=== PATIENT | female | born 1960 | race Caucasian/White ===

== ENCOUNTER 2020-01-07 17:15 | Emergency (ER) | payer MEDICARE, MEDICAID, SELFPAY ==
--- NOTE | 2020-01-07 17:47 | PC.NURSE ---
PT LWBS, LAST SEEN AT 1745 BY REGISTRATION STAFF, BELKIS
== END 2020-01-07 17:47 | disposition left against medical advice (07) ==
LOC: CHSED 17:19
PROVIDERS: Emergency Provider Surgery; PCP Family Medicine
DX: Z53.8 Procedure and treatment not carried out for other reasons (principal)
CPT/HCPCS: 99199

== ENCOUNTER 2020-08-22 09:25 | Emergency (ER) | payer MEDICARE, MEDICAID, SELFPAY ==
--- NOTE | ~2020-08-22 | XR_ITS ---
XR wrist LT min 3V 08/22/2020 10:41 Indication: Status post fall. Arm pain. Procedure: 4 views left wrist Comparison: No prior studies for comparison. Findings: Mild degenerative changes of the triscaphe joint. Osteopenia. No acute fracture, subluxatio n or dislocation. No significant joint effusion. No radiopaque foreign bodies. Impression: 1: No acute fracture. Reviewed, dictated and finalized at location A. Impression: 1: No acute fracture.
--- NOTE | ~2020-08-22 | CT_ITS ---
EXAMINATION: CT lumbar spine wo con EXAM DATE: 08/22/2020 10:13 INDICATION: Fell down flight of steps today causing back pain. TECHNIQUE: Lumber spine frontal, lateral, lateral L5-S1 projections for interpretation. There is no prior study for comparison. FINDINGS: There is hepatic steatosis. There is suspicion of gastroesophageal varicosities. There is old left L3 transverse process fracture. Sacrum, sacroiliac joints, sacral arcuate lines are intact. There are no acute fractures identified. Mild to moderate loss of disc height at L4-5 with large disc bulge,, causing moderate central canal and left neural foraminal stenosis. Smaller disc bulges, less disc disease and stenosis at other levels. Mild to moderate aortic arteriosclerotic disease. No spon dylolysis. Mild to moderate lower lumbar facet arthropathy. IMPRESSION: 1. No acute lumbar findings. 2. L4-5 large disc bulge with moderate central canal and left neural foraminal stenosis. 3. Lesser spondylosis other levels. 4. Hepatic steatosis. Possible gastroesophageal varicosities. Reviewed, dictated and finalized at location B.
--- NOTE | ~2020-08-22 | XR_ITS ---
EXAMINATION: XR elbow LT min 3V DATE: 08/22/2020 10:41 INDICATION: Left elbow pain. TECHNIQUE: 3 views of left elbow were obtained. COMPARISON: None. FINDINGS: Bone alignment is normal. There is cortical irregularity at the junction of radial head and neck. There is a small fragment of bone adjacent to the tip of coronoid process of proximal ulna. Viv int spaces are normal. There is an enthesophyte at medial humeral epicondyle. There is an elbow joint effusion. IMPRESSION: 1. Small fragment of bone adjacent to the tip of the coronoid process of proximal ulna, which may be an acute fracture or a finding from old injury. 2. Cortical irregularity of the junction of radial head and neck, which is indeterminate for nondispl aced fracture. 3. Elbow joint effusion. Reviewed, dictated and finalized at location A. IMPRESSION: 1. Small fragment of bone adjacent to the tip of the coronoid process of proxim al ulna, which may be an acute fracture or a finding from old injury. 2. Cortical irregularity of the junction of radial head and neck, which is inde terminate for nondisplaced fracture. 3. Elbow joint effusion.
--- NOTE | ~2020-08-22 | XR_ITS ---
XR humerus LT 08/22/2020 10:41 INDICATION: Left arm pain PROCEDURE: 2 views left humerus COMPARISON: No prior studies for comparison. FINDINGS: Fracture, dislocation or subluxation is not identified. The soft tissues appear within norm al limits. No foreign bodies are identified. IMPRESSION: 1: NO ACUTE BONE OR JOINT ABNORMALITY IDENTIFIED. Reviewed, dictated and finalized at location A.
[2020-08-22 09:30] VITALS: BP 102/48; PULSE 123; RESP 20; TEMP 36.9; O2SAT 94
--- NOTE | 2020-08-22 09:40 | ED.UPPEXIN ---
HPI - Extremity Injury (Upper) General Chief Complaint: Extremity Injury, Upper Stated Complaint: FELL HURT ARM WRIST Time Seen by Provider: 08/22/20 09:32 Source: patient Mode of arrival: ambulatory History of Present Illness HPI narrative: 59-year-old woman comes in today complaining of left arm pain that started yesterday evening after she fell down some stairs. Patient states she was carrying a box down some stairs when she lost her footing, and slid down on her back and left side. she denies any preceding symptoms such as lightheadedness, chest pain, shortness of breath, dizziness, or syncope. She denies head injury and neck pain. Other than the arm injury she complains of low back tenderness. complaint: injury to: left, arm, elbow and wrist Onset (ago): hour(s) (12) Other Extremity Injury: Left: wrist, elbow and arm Other injuries: back Handedness: right Place: home Severity: severe Relieving factors: immobilization Exacerbating factors: movement of extremity Context: fall Related Data Allergies Allergy/AdvReac Type Severity Reaction Status Date / Time codeine Allergy Mild Verified 03/28/11 18:20 Penicillins Allergy Mild Verified 03/28/11 18:20 Review of Systems Constitutional: Constitutional: Denies chills and Denies fever(s) Eyes: Eyes: Denies change in vision and Denies photophobia ENT: Denies dysphagia, Denies nasal congestion and Denies sore throat Cardiovascular: Cardiovascular: Denies chest pain and Denies radiating jaw, neck or arm pain Respiratory: Respiratory: Denies cough, Denies dyspnea and Denies wheezing Gastrointestinal: Gastrointestinal: Denies abdominal pain, Denies nausea and Denies vomiting Genitourinary: Genitourinary: Denies hematuria Musculoskeletal: Musculoskeletal: Reports as per HPI, Reports back pain, Reports arthralgias and Denies joint swelling Integumentary/Breasts: Skin/Breast: Denies pruritus, Denies erythema and Denies rash Neurologic: Reports vertigo, Reports dizziness and Reports syncope Endocrine: Endocrine: Denies polydipsia and Denies polyuria Hematologic/Lymphatic: Hematologic/Lymphatic: Denies easy bleeding and Denies easy bruising Allergic/Immunologic: Allergic/Immunologic: Denies lip swelling and Denies tongue swelling [facility] Past Medical History Medical History (Updated 08/22/20 @ 11:03 by Pro Andersen MD) HTN (hypertension) Surgical History Surgical History History of ankle surgery Social History Social History Smoking status: Current every day smoker Alcohol intake: current Substance use: never Living arrangements: alone Exam Const: General: alert Orientation/consciousness: patient oriented x3 Limitations: no limitations Other: Moderate acute distress HENMT: Head: normal to inspection Ears: external ears normal and EAC's normal General nose exam: Normal nares present Face and sinus: normal facial exam Mouth: Yes moist mucous membranes Throat: posterior oropharynx normal Eyes: Conjunctivae: conjunctivae normal Pupils: Equal, round and reactive pupils present EOM: EOMs intact bilaterally Neck: Neck: normal visual inspection Other: No tenderness. Chest: Chest palpation & inspection: normal inspection of the chest and no tenderness Resp: Effort & Inspection: normal respiratory effort and not labored Auscultation: clear to auscultation bilaterally, no rales, no rhonchi and no wheezes Cardio: Rate: regular rate Rhythm: regular rhythm Heart sounds: no murmurs GI: GI Palp: Yes Soft to palpation and No Tenderness to palpation present (GI) Skin: General skin exam: normal color, no jaundice and no pallor Rashes: no rashes Other: Contusion over left lateral pelvis and superficial abrasion on lower lumbar spine. Neuro: General: patient oriented x3, moves all extremities, no focal motor deficits and CN's II-XI
[2020-08-22 11:16] VITALS: BP 108/51; PULSE 118; RESP 18; TEMP 36.7; O2SAT 94
[2020-08-22] MEDS: HYDROcodone/acetaminophen (*CRX) 5-325 MG TABLET 1 TAB PO (11:19)
== END 2020-08-22 11:24 | disposition home or self-care (01) ==
PROVIDERS: Emergency Provider Emergency Medicine; PCP Family Medicine
DX: S63.502A Unspecified sprain of left wrist, initial encounter (principal); S52.125A Nondisplaced fracture of head of left radius, initial encounter for closed fracture; W10.9XXA Fall (on) (from) unspecified stairs and steps, initial encounter; I10 Essential (primary) hypertension; F17.200 Nicotine dependence, unspecified, uncomplicated
CPT/HCPCS: 72131; 73060; 73080; 73110; 99283; 99284; A9270

== ENCOUNTER 2020-10-27 14:15 | Emergency (ER) | payer MEDICARE, MEDICAID, SELFPAY ==
[2020-10-27 14:20] VITALS: BP 166/91; PULSE 123; RESP 16; TEMP 36.1; O2SAT 97
[2020-10-27 15:02] LABS: Appearance Urine Clear (Clear); Bilirubin Urine Negative (Negative); Color Urine Yellow (Yellow); Glucose Urine UA Negative (Negative); Ketones Urine Negative (Negative); Leukocyte Esterase Ur 1+ (Negative); Nitrate Urine Negative (Negative); Protein Urine Negative (Negative); Specific Grav Ur 1.025 (1.010-1.020); Urobilinogen Urine 0.2 mg/dL (0.2-1.0)
[2020-10-27 15:20] LABS: Add Urine Microscopic? YES; Blood Urine Trace-Intact (Negative); RBC Urine None seen /hpf (0-2); Squamous Epithelial Cell Urine Rare /hpf (Few)
[2020-10-27 15:21] LABS: Bacteria Urine 1+ /hpf
--- NOTE | 2020-10-27 15:27 | ED.GENADULT ---
HPI - General Adult General Chief complaint: Unspecified Stated complaint: infection in throat Time Seen by Provider: 10/27/20 15:15 Source: patient Mode of arrival: ambulatory Limitations: no limitations History of Present Illness HPI narrative: 60-year-old woman comes in today complaining of sore throat, white patches on her uvula and in her throat for last few days And white vaginal discharge which has been present for last month. Patient states that she has had some mild but not new low abdominal pain, and states that she has some discomfort with urination but has had no fever, nausea, vomiting, cough, difficulty swallowing or difficulty breathing, hematuria or rash. She mentioned to the nurses that she might need to be screened for STDs. She denies any recent antibiotics and has no history of IV drug use. Onset (ago): month(s) (1) Location: mouth and genitals Radiation: non-radiation Severity: mild Quality: burning and sharp Pain Consistency: constant Relieving factors: none Exacerbating factors: other ( Swallowing, urination) Related Data Allergies Allergy/AdvReac Type Severity Reaction Status Date / Time codeine Allergy Mild Verified 03/28/11 18:20 Penicillins Allergy Mild Verified 03/28/11 18:20 Review of Systems Constitutional: Constitutional: Denies chills, Denies fever(s), Denies lethargy, Denies night sweats and Reports weight loss Eyes: Eyes: Denies change in vision and Denies other visual disturbances ENT: Denies otalgia, Denies nasal congestion, Denies neck mass, Denies neck pain, Reports sore throat and Denies throat swelling Cardiovascular: Cardiovascular: Denies chest pain, Denies irregular heart rhythm, Denies leg edema and Denies dyspnea on exertion Respiratory: Respiratory: Denies chest congestion, Denies cough, Denies dyspnea, Denies stridor and Denies wheezing Gastrointestinal: Gastrointestinal: Denies abdominal pain, Denies dysphagia, Denies diarrhea, Denies nausea and Denies vomiting Genitourinary: Genitourinary: Denies hematuria, Reports dysuria, Reports pelvic pain and Reports vaginal discharge Musculoskeletal: Musculoskeletal: Denies arthralgias and Denies joint swelling Integumentary/Breasts: Skin/Breast: Denies erythema and Denies rash Neurologic: Denies vertigo, Denies dizziness, Denies syncope, Denies focal weakness, Denies numbness and Denies radicular pain Hematologic/Lymphatic: Hematologic/Lymphatic: Denies easy bleeding and Denies easy bruising Allergic/Immunologic: Allergic/Immunologic: Denies urticaria and Denies throat swelling PMFSH Past Medical History Medical History HTN (hypertension) Surgical History Surgical History History of ankle surgery Social History Social History Smoking status: Current every day smoker Alcohol intake: current Substance use: never Exam Const: General: cooperative, healthy appearing and acute distress mild Nutritional Appearance: average body habitus Orientation/consciousness: patient oriented x3 Limitations: no limitations HENMT: Head: normal to inspection, normocephalic and atraumatic Ears: external ears normal, TM's normal bilaterally and EAC's normal General nose exam: Normal nares present Face and sinus: normal facial exam Mouth: Yes moist mucous membranes Throat: uvular edema ( with think adherent white patches) Eyes: Pupils: Equal, round and reactive pupils present EOM: EOMs intact bilaterally Neck: Neck: normal visual inspection Lymphatic: no lymphadenopathy noted Resp: Effort & Inspection: normal respiratory effort, not labored and no stridor Auscultation: clear to auscultation bilaterally Cardio: Rate: regular rate Rhythm: regular rhythm Heart sounds: no murmurs GI: Inspection: normal to inspection GI Palp: No abdominal tenderness and Yes S
[2020-10-27 15:38] LABS: KOH Fungus None Seen (None Seen); Wet Prep Fungus (KOH) Source Vaginal (Negative)
[2020-10-27 15:40] LABS: Basophils Absolute Auto 0.07 K/mm3 (0.00-0.10); Basophils Percent Auto 1.1 % (0.0-1.0); Eosinophils Absolute Auto 0.21 K/mm3 (0.02-0.50); Eosinophils Percent Auto 3.3 % (1.0-6.0); Hematocrit 45.2 % (35.0-49.0); Hemoglobin 15.6 g/dL (12.0-15.0); Immature Granulocyte Absolute 0.01 K/mm3 (0.00-0.00); Immature Granulocyte Percent A 0.2 % (0.0-0.0); Lymphocytes Absolute Auto 2.01 K/mm3 (1.10-4.50); Lymphocytes Percent Auto 31.4 % (18.0-42.0); Mean Corpuscular HGB Conc 34.5 g/dL (32.0-36.0); Mean Corpuscular Hemoglobin 33.5 pg (27.0-31.0); Mean Corpuscular Volume 97.2 fL (78.0-102.0); Mean Platelet Volume 9.8 fl (9.2-11.8); Monocytes Absolute Auto 0.67 K/mm3 (0.10-0.90); Monocytes Percent Auto 10.5 % (2.0-11.0); Neutrophils Absolute Auto 3.4 K/mm3 (1.7-7.2); Neutrophils Percent Auto 53.5 % (50.0-70.0); Platelet Count Result 166 K/mm3 (150-420); Red Blood Count 4.65 M/mm3 (4.20-5.40); Red Cell Distribution Width 11.8 % (11.6-14.4); White Blood Count 6.4 K/mm3 (4.8-10.8)
[2020-10-27 15:45] VITALS: BP 137/75; PULSE 89; RESP 14; O2SAT 98
[2020-10-27 15:53] LABS: Alanine Aminotransferase 22 U/L (14-59); Albumin Level 3.7 g/dL (3.4-5.0); Alkaline Phosphatase 147 U/L (46-116); Anion Gap 10 mmol/L (8-16); Aspartate Amino Transferase 38 U/L (15-37); Bilirubin,Total 0.7 mg/dL (0.00-1.00); Blood Urea Nitrogen 5 mg/dL (7-18); Calcium 9.2 mg/dL (8.5-10.1); Carbon Dioxide 27 mmol/L (21-32); Chloride 102 mmol/L (98-108); Estimated Glomerular Filt Rate > 60; Glucose 101 mg/dL (70-99); Osmolality Calculated 285 mOsm/kg (285-295); Potassium 3.3 mmol/L (3.5-5.1); Sodium 139 mmol/L (136-145); Total Protein 9.1 g/dL (6.4-8.2)
[2020-10-27 16:27] LABS: HIV 1 P24 AG Negative (Negative); HIV 1/2 AB Negative (Negative)
[2020-10-27 16:49] VITALS: BP 140/80; PULSE 99; RESP 15; O2SAT 95
== END 2020-10-27 16:50 | disposition home or self-care (01) ==
PROVIDERS: Emergency Provider Emergency Medicine; PCP Family Medicine
DX: R30.0 Dysuria (principal); B37.3 Candidiasis of vulva and vagina; J02.9 Acute pharyngitis, unspecified
CPT/HCPCS: 36415; 80053; 81001; 85025; 86703; 87210; 87491; 87591; 99283; 99284

== ENCOUNTER → 2021-05-23 00:36 | Outpatient (CLI) | payer MEDICARE, MEDICAID, SELFPAY ==
[2021-05-23 16:57] LABS: SARS-CoV-2 RNA PCR Negative
== END ==
PROVIDERS: PCP Family Medicine; Visit Provider Surgery
DX: Z01.812 Encounter for preprocedural laboratory examination (principal); Z20.822 Contact with and (suspected) exposure to COVID-19
CPT/HCPCS: C9803; U0003; U0005

== ENCOUNTER 2021-05-27 01:21 | Day surgery (SDC) | payer MEDICARE, MEDICAID, SELFPAY ==
[2021-05-20 15:11] VITALS: BMI 19.2
--- NOTE | ~2021-05-27 | XR_ITS ---
EXAMINATION: XR fl guide central line place DATE: 05/27/2021 12:15 INDICATION: Port placement. TECHNIQUE: A single intraoperative fluoroscopic view of the chest was obtained. I was not present. Fl uoroscopy exposure time was 28 seconds. COMPARISON: Chest single view 05/27/2021 FINDINGS: There is a right internal jugular port with tip at superior cavoatrial junction. IMPRESSION: 1. Port tip at superior cavoatrial junction. Reviewed, dictated and finalized at location A.
--- NOTE | ~2021-05-27 | XR_ITS ---
EXAMINATION: XR chest port-a-cath/central DATE: 05/27/2021 11:49 INDICATION: Port placement. TECHNIQUE: A single frontal view of the chest was obtained. COMPARISON: Chest 2 views 02/15/2019 FINDINGS: The chest demonstrates clear lungs without pneumonia, pleural effusion, or pneumothorax. Th e heart size is normal. There are old healed left rib fractures. There is a right internal jugular po rt with tip in superior vena cava. IMPRESSION: 1. Port tip in superior vena cava. Reviewed, dictated and finalized at location A.
[2021-05-27 08:19] VITALS: BP 103/56; PULSE 100; RESP 16; TEMP 37.1; O2SAT 100
[2021-05-27] MEDS: LACTATED RINGERS 1,000 ML 30 ML IV CONT (08:43)
[2021-05-27 08:47] LABS: Basophils Percent Auto 0.5 % (0.2-1.2); Eosinophils Absolute Auto 0.3 K/mm3 (0-0.3); Eosinophils Percent Auto 3.4 % (0-4.4); Hemoglobin 12.6 g/dL (12.0-15.0); Immature Granulocyte Absolute 0.02 K/mm3 (0.00-0.031); Immature Granulocyte Percent A 0.3 % (0-0.5); Lymphocytes Absolute Auto 1.92 K/mm3 (0.9-3.2); Lymphocytes Percent Auto 24.9 % (18.3-44.2); Mean Corpuscular Hemoglobin 32.4 pg (26-34); Mean Corpuscular Volume 92.5 fl (80-100); Mean Platelet Volume 9.8 fl (7.4-10.4); Monocytes Percent Auto 12.7 % (2.6-8.5); Neutrophils Absolute Auto 4.5 K/mm3 (1.3-6.7); Neutrophils Percent Auto 58.2 % (45.5-73.1); Platelet Count Result 175 k/mm3 (150-375); Red Blood Count 3.89 M/mm3 (4.2-5.4); White Blood Count 7.7 K/mm3 (4.5-10.0)
[2021-05-27] MEDS: KETOROLAC 15 MG/ML VIAL (*BKC) IV PUSH (08:49)
[2021-05-27 08:59] LABS: Partial Thromboplastin Time 35.8 SECONDS (22.3-36.8)
[2021-05-27 09:02] LABS: Anion Gap 7 mmol/L (8-16); Blood Urea Nitrogen 9 mg/dL (7-17); Calcium 9.6 mg/dL (8.4-10.2); Carbon Dioxide 26 mmol/L (22-30); Chloride 104 mmol/L (98-107); Estimated Glomerular Filt Rate > 60; Glucose 99 mg/dL (65-105); Potassium 4.3 mmol/L (3.4-5.0); Sodium 137 mmol/L (137-145)
--- NOTE | 2021-05-27 09:34 | WPDANESEPPF ---
Anes - Initial Pre Proc Eval Procedure: Operation Date: 05/27/21 10:30 Proposed Procedures p Insertion Niko Cath - Josias Mensah DO Date/Time: 05/27/21 09:34 Surgeon: Jsoias Mensah DO Pre Op Diagnosis: neoplasm of mouth Patient Data Age: 60 Gender: F Height: 1.5 m Weight: 42.9 kg Last Vital Signs Temp 37.1 C 05/27/21 08:19 Pulse 100 05/27/21 08:19 Resp 16 05/27/21 08:19 BP 103/56 L 05/27/21 08:19 Pulse Ox 100 05/27/21 08:19 Allergies Allergy/AdvReac Type Severity Reaction Status Date / Time codeine Allergy Mild Itching, Verified 05/27/21 08:30 N/V Penicillins Allergy Mild Hives Verified 05/27/21 08:30 Home Medications Medication Instructions Recorded Confirmed Type acetaminophen [Children's Tylenol] See Rx Instructions .ROUTE 05/20/21 05/27/21 History .COMPLEX PRN thiamine HCl (vitamin B1) 100 mg DAILY 05/20/21 05/27/21 History Laboratory Tests 05/27/21 05/27/21 05/27/21 08:29 08:29 08:29 WBC 7.7 K/mm3 K/mm3 (4.5-10.0) RBC 3.89 M/mm3 L M/mm3 (4.2-5.4) Hgb 12.6 g/dL g/dL (12.0-15.0) Hct 36.0 % L % (37.0-47.0) MCV 92.5 fl fl (80-100) MCH 32.4 pg pg (26-34) MCHC 35.0 g/dl g/dl (32-36) RDW 15.0 % H % (11.5-14.5) Plt Count 175 k/mm3 k/mm3 (150-375) MPV 9.8 fl fl (7.4-10.4) Immature Gran % (Auto) 0.3 % % (0-0.5) Neut % (Auto) 58.2 % % (45.5-73.1) Lymph % (Auto) 24.9 % % (18.3-44.2) [place] % (Auto) 12.7 % H % (2.6-8.5) Eos % (Auto) 3.4 % % (0-4.4) Baso % (Auto) 0.5 % % (0.2-1.2) Lymph # (Auto) 1.92 K/mm3 K/mm3 (0.9-3.2) [place] # (Auto) 1.0 K/mm3 H K/mm3 (0.1-0.6) Eos # (Auto) 0.3 K/mm3 K/mm3 (0-0.3) Baso # (Auto) 0.0 K/mm3 K/mm3 (0.0-0.1) Abs Immat Gran (auto) 0.02 K/mm3 K/mm3 (0.00-0.031) Absolute Neuts (auto) 4.5 K/mm3 K/mm3 (1.3-6.7) Absolute Nucleated RBC 0.0 K/mm3 K/mm3 (0.0-0.012) Nucleated RBC % 0.0 % % (0.0-0.2) PT 14.0 Seconds Seconds (11.1-14.7) INR 1.0 APTT 35.8 SECONDS SECONDS (22.3-36.8) Sodium 137 mmol/L mmol/L (137-145) Potassium 4.3 mmol/L mmol/L (3.4-5.0) Chloride 104 mmol/L mmol/L (98-107) Carbon Dioxide 26 mmol/L mmol/L (22-30) Anion Gap 7 mmol/L L mmol/L (8-16) BUN 9 mg/dL mg/dL (7-17) Creatinine 0.40 mg/dL L mg/dL (0.7-1.0) Estim Creat Clear Calc Not Reportable Estimated GFR > 60 (59 - ) Glucose 99 mg/dL mg/dL (65-105) Calcium 9.6 mg/dL mg/dL (8.4-10.2) Patient hx anesthesia problems: none Family hx anesthesia problems: none [facility] Past Medical History Medical History (Updated 05/27/21 @ 09:35 by Sam Green MD) Alcohol abuse HTN (hypertension) Marijuana abuse Oral cancer Surgical History Surgical History History of ankle surgery Social History Social History Smoking status: Current every day smoker Tobacco type: cigarettes Additional smoking assessment comments: STATES WAS SMOKING 1 1/2PK/DAY-NOW DOWN TO 4 CIGS/DAY - 25YRS Alcohol intake: former Alcohol use details: STATES WAS DRINKING 2- 20 OZ CANS NIGHTLY, QUIT FEBRUARY 2021 Substance use: current Substance use type: marijuana Last use: APRIL 2021 Living arrangements: alone Spiritual care concerns: No Anes - Eval Final PreProcedure Day of Procedure 05/27/21 09:34 Patient weight: cachectic Heart: regular rate and rhythm Lungs: decreased breath sounds Airway: Mallampati scale class III, special considerations poor dentition and other (large plaque oral cancer on soft palate) Neurological: al
--- NOTE | 2021-05-27 10:49 | WPDHPUPDATE1 ---
History and Physical Update Update Date/Time: 05/27/21 10:49 History and Physical has been reviewed, including an updated exam of the patient. There are NO changes in the patient's condition. Risks, benefits, and alternatives have been discussed and questions answered. Patient agrees to proceed with procedure.
--- NOTE | 2021-05-27 10:49 | PM.IMHP ---
H&P: HPI History of Present Illness Date/Time: 05/27/21 10:49 Chief Complaint: Oral cancer Narrative: This is a 60 yo woman who presents with oral cancer. She has seen oncology and they are recommending chemo and radiation. She is in need of port placement to start chemo. Review of Systems Review of Systems: All systems reviewed & are unremarkable except as noted in HPI and below Constitutional: Constitutional: Denies chills, Denies fever(s), Denies headache(s) and Denies weight loss Eyes: Eyes: Denies change in vision ENT: Denies dizziness, Denies headache(s), Denies neck mass and Denies throat swelling Cardiovascular: Cardiovascular: Denies chest pain, Denies lightheadedness and Denies dyspnea Respiratory: Respiratory: Denies cough, Denies dyspnea and Denies wheezing Gastrointestinal: Gastrointestinal: Denies abdominal pain, Denies change in bowel habits, Denies nausea and Denies vomiting Genitourinary: Genitourinary: Denies hematuria and Denies dysuria Musculoskeletal: Musculoskeletal: Reports as per HPI Integumentary/Breasts: Skin/Breast: Reports as per HPI Neurologic: Denies dizziness and Denies headache(s) Allergic/Immunologic: Allergic/Immunologic: Denies throat swelling and Denies wheezing PMFSH Past Medical History Medical History (Updated 05/27/21 @ 10:51 by Josias Mensah DO) Alcohol abuse HTN (hypertension) Marijuana abuse Oral cancer Surgical History Surgical History History of ankle surgery Social History Social History Smoking status: Current every day smoker Tobacco type: cigarettes Additional smoking assessment comments: STATES WAS SMOKING 1 1/2PK/DAY-NOW DOWN TO 4 CIGS/DAY - 25YRS Alcohol intake: former Alcohol use details: STATES WAS DRINKING 2- 20 OZ CANS NIGHTLY, QUIT FEBRUARY 2021 Substance use: current Substance use type: marijuana Last use: APRIL 2021 Living arrangements: alone Spiritual care concerns: No Meds Home Medications and Allergies Home Medications Medication Instructions Recorded Confirmed Type acetaminophen [Children's Tylenol] See Rx Instructions .ROUTE 05/20/21 05/27/21 History .COMPLEX PRN thiamine HCl (vitamin B1) 100 mg DAILY 05/20/21 05/27/21 History Allergies Allergy/AdvReac Type Severity Reaction Status Date / Time codeine Allergy Mild Itching, Verified 05/27/21 08:30 N/V Penicillins Allergy Mild Hives Verified 05/27/21 08:30 Vital Signs Vital Signs - 24 hr 05/27/21 08:19 Temperature 37.1 C Pulse Rate 100 Respiratory Rate 16 Blood Pressure 103/56 L Pulse Oximetry 100 Exam Const: General: no acute distress and alert Orientation/consciousness: patient oriented x3 HENMT: Head: normocephalic and atraumatic Ears: hearing grossly normal bilaterally General nose exam: Normal nares present Mouth: Yes Normal oral and palatal mucosa present Eyes: Periorbital: periorbital findings normal Sclera: sclerae normal EOM: EOMs intact bilaterally Neck: Neck: normal visual inspection, no lymphadenopathy and trachea midline Chest: Chest palpation & inspection: normal inspection of the chest Resp: Effort & Inspection: normal respiratory effort Auscultation: clear to auscultation bilaterally Cardio: Jugular venous distension: no JVD Rate: regular rate Rhythm: regular rhythm Heart sounds: S1 normal heart sound present and S2 normal heart sound present Peripheral pulses: Peripheral pulses 2+ throughout GI: Inspection: normal to inspection GI Palp: Yes Soft to palpation, No Tenderness to palpation present (GI), No Guarding due to palpation present (GI) and No Rebound tenderness present Percussion: Yes normal to percussion Auscultation: normal bowel sounds : General: Yes no CVA tenderness Back/Spine/Pelvis: Back: no CVA tenderness Neuro: General: patient oriented x3, no focal motor deficit
[2021-05-27] MEDS: ceFAZolin 2 GM/D5W 50 ML 2 GM/50 ML BAG IVPB (11:12)
[2021-05-27] MEDS: HEPARIN SODIUM 5,000 UNITS/ML VIAL 5000 UNITS IRRIGATION (11:36)
[2021-05-27] MEDS: LIDO 1%/EPINEPHRINE 1:100,000 50 ML VIAL INFILTRATE (11:36)
[2021-05-27] MEDS: HEPARIN SODIUM, PORCINE 10,000 UNITS/10 ML VIAL 10000 UNITS IRRIGATION (11:37)
--- NOTE | 2021-05-27 11:54 | W.PM.PROC2 ---
Procedure Note - Detailed Date of Procedure 05/27/21 Pre-op Diagnosis neoplasm of mouth Post-op Diagnosis same Procedure Performed Right Internal jugular Port-A-Cath placement using ultrasound and fluoroscopic guidance Surgeon Josias Mensah, DO Anesthesia MAC and local (1% lidocaine with epinephrine) Indications this is a 60-year-old woman who presents with oral cancer. She has seen Oncology and is planning to undergo chemotherapy and radiation therapy. She needs long-term IV access, therefore she was referred for Port-A-Cath placement. Findings Right internal jugular Port-A-Cath was placed under ultrasound and fluoroscopic guidance. Ultrasound was used to identify the right internal jugular vein which was seen as a compressible vessel just lateral to the right carotid artery. An 18 gauge introducer needle was advanced under ultrasound guidance. Fluoroscopy was then used to guide advancement of the guidewire followed by the dilator and sheath. The final fluoroscopic images demonstrated the catheter tip in the distal SVC and no kinks along its path. Description of Procedure Procedure as well as risks, benefits, and alternatives were discussed with patient. Written consent was obtained and placed in chart prior to procedure. Patient was brought back to surgical suite. Was placed supine on operating table. Time-out was done confirm patient procedure. IV sedation was then administered by the Anesthesia Department. The chest and neck area was prepped and draped in sterile fashion using chlorhexidine prep. Patient was placed in Trendelenburg position. SonoSite ultrasound was used to identify the Right internal jugular vein. It was visualized as a compressible vessel just lateral to the carotid artery. 1% lidocaine with epinephrine was infiltrated directly over the vessel under ultrasound guidance. An 18 gauge introducer needle was then advanced under ultrasound guidance directly into the right internal jugular vein. Dark nonpulsatile blood was aspirated. A 0.035 in guidewire was then advanced through the needle under fluoroscopic guidance. The guidewire was visualized advancing all the way down into the superior vena cava. 1% lidocaine with epinephrine was then infiltrated on the right anterior chest and along the tract up to the guidewire insertion site. A 3 cm incision was made with a 15 blade scalpel, and electrocautery was then used for dissection down through the subcutaneous tissue to the pectoral fascia. A pocket was created just inferior to the incision using blunt dissection. A small nikhil incision was then also made at the insertion site at the neck. The tunneler was then advanced from the chest incision up to the neck incision and the catheter tubing was brought up through this tract. The dilator and sheath were then advanced over the guidewire under fluoroscopic visualization. The dilator and guidewire were then removed leaving the sheath in place. The catheter tubing was then advanced through the sheath under fluoroscopic guidance. The sheath was unsnapped and carefully peeled away. The catheter tubing was released underneath the neck incision. Fluoroscopy was used to confirm proper placement of the catheter tubing and no kinks along its path. The catheter was then cut to proper length and secured to the port. The port was then accessed with a Gamez needle and aspirated and flushed with heparinized saline. The port function with ease. The port was then hep-locked with Hep-Lock solution. The port was then placed within the pocket that was created, and was secured to the fascia using 3 0 Prolene simple interrupted sutures. The patient was flattened out in bed. Regine's fascia was reapproximated using 3 0 Vicryl simple interrupted sutures. The skin of the incisions was then approximated using 4-0 Monocryl subcuticular suture. Exofin glue was then applied on top. The patient was then awakened from anesthesia and transferred
[2021-05-27 11:59] VITALS: BP 112/62; PULSE 88; RESP 12; O2SAT 100
[2021-05-27 12:25] VITALS: BP 116/61; PULSE 95; RESP 12
[2021-05-27 12:55] VITALS: BP 104/64; PULSE 95; RESP 20
== END 2021-05-27 13:08 | disposition home or self-care (01) ==
PROVIDERS: Anesthesiology; PCP Family Medicine; Visit Provider Surgery
PROC: (CPT 36561; principal; 2021-05-27 10:30)
DX: C06.9 Malignant neoplasm of mouth, unspecified (principal); I10 Essential (primary) hypertension; F17.210 Nicotine dependence, cigarettes, uncomplicated; F12.90 Cannabis use, unspecified, uncomplicated; R64 Cachexia; Z68.1 Body mass index [BMI] 19.9 or less, adult
CPT/HCPCS: 36561; 36415; 77001; 80048; 85025; 85610; 85730; C1788; C9803; J0690; J1644; J1885; J2250; J3010; J7030; J7120; U0003; U0005

== ENCOUNTER 2021-06-09 12:21 | Outpatient (CLI) | payer MEDICARE, MEDICAID, SELFPAY ==
--- NOTE | ~2021-06-09 | PE_ITS ---
EXAMINATION: PET whole body melanoma DATE: 06/09/2021 14:42 INDICATION: Mouth cancer TECHNIQUE: Blood glucose level was 74 mg/dL. 9.037 mCi of 18-fluorodeoxyglucose (18-FDG) was administ ered i.v. Low dose computed tomography (CT) images were acquired from the vertex through the feet for attenuation correction and anatomic localization. Positron emission tomography (PET) images were acq uired in the same distribution beginning 58 minutes after injection. Images including fused PET/CT im ages were reconstructed in axial, coronal, and sagittal planes. Automated exposure control technique was employed. The dose-length product was 389.53mGy-cm. COMPARISON: None FINDINGS: Head/neck: There is prominent FDG uptake with maximal SUV of 13.0 circumferentially along the thickened mucosa o f the soft palate extending posteriorly along the periphery of the oropharynx including the bilateral palatine tonsils consistent with given history of primary oral cancer. There are a pair of closely o pposed FDG avid level 2A jugular chain lymph nodes together measuring 1.9 x 1.1 x 2.3 cm posterior to the angle of the mandible and with maximal SUV of 6.5. There is symmetric increased activity in the bilateral submandibular glands, laryngeal muscles and ocular muscles without CT correlate, likely phy siologic. No other pathologically enlarged or FDG avid cervical lymphadenopathy. Chest: Right internal jugular central venous port catheter with distal tip at the superior cavoatrial juncti on. Lungs are clear with no suspicious pulmonary nodules, pneumonia, pulmonary edema or other pulmona ry infiltrates. No pleural effusion. Heart size is normal. Atherosclerotic coronary artery calcific l esion. No pericardial effusion. Thoracic aorta is normal in caliber. No pathologically enlarged or FD G avid thoracic lymphadenopathy. Abdomen/pelvis/lower limbs: Percutaneous gastrostomy tube bulb within the body of the stomach. Physiologic renal accumulation and excretion of FDG activity in the kidneys, bladder and along portions of ureters. Normal degree and h eterogenous pattern of increased uptake throughout the liver without radiologic correlate or dominant FDG avid lesion. The gallbladder, pancreas, spleen and bilateral adrenal glands are normal. Mild upt nelson scattered throughout the bowels without radiologic correlate, also likely physiologic. Normal iker endix. No other abnormal foci of increased FDG uptake or pathologically enlarged lymphadenopathy in t he abdomen, pelvis or lower limbs. Musculoskeletal: There is diffuse mild increased FDG uptake throughout the bones primarily in the spine, pelvis and pr oximal femurs without corresponding suspicious lytic or blastic bone lesions most likely related to i ncreased marrow activity such as in the setting of anemia. Lateral plate and screw fixation along the distal right fibula. IMPRESSION: 1. Marked increased FDG uptake such with thickened mucosa in the posterior oropharynx including the s oft palate and lateral palatine tonsils consistent with reported history of oral cancer. 2. Moderate increased FDG uptake associated with a pair of enlarged level 2A right jugular chain lymp h nodes suspicious for metastatic disease. No other lesions suspicious for more remote metastatic dis ease. 3. Diffuse relatively homogeneous mild increased bone marrow FDG uptake likely related to anemia with no focally more intense foci of increased uptake or suspicious lytic or blastic bone lesions to sugg est osseous metastatic disease. Reviewed, dictated and finalized at location A. IMPRESSION: 1. Marked increased FDG uptake such with thickened mucosa in the posterior orop harynx including the soft palate and lateral palatine tonsils consistent with r eported
[2021-06-09 12:53] LABS: Glucose Point of Care 74 mg/dl (65-105)
== END 2021-06-09 12:22 | disposition home or self-care (01) ==
PROVIDERS: PCP Family Medicine; Visit Provider Family Medicine
DX: C76.8 Malignant neoplasm of other specified ill-defined sites (principal); R59.0 Localized enlarged lymph nodes
CPT/HCPCS: 78816; A9552

== ENCOUNTER 2021-07-06 13:17 | Outpatient (CLI) | payer MEDICARE, MEDICAID, SELFPAY ==
[2021-07-06 13:42] LABS: Basophils Absolute Auto 0.06 K/mm3 (0.00-0.10); Basophils Percent Auto 0.8 % (0.0-1.0); Eosinophils Percent Auto 3.8 % (1.0-6.0); Hematocrit 34.7 % (35.0-49.0); Hemoglobin 12.2 g/dL (12.0-15.0); Immature Granulocyte Absolute 0.02 K/mm3 (0.00-0.00); Immature Granulocyte Percent A 0.3 % (0.0-0.0); Lymphocytes Absolute Auto 2.32 K/mm3 (1.10-4.50); Lymphocytes Percent Auto 29.1 % (18.0-42.0); Mean Corpuscular HGB Conc 35.2 g/dL (32.0-36.0); Mean Corpuscular Hemoglobin 33.1 pg (27.0-31.0); Mean Platelet Volume 9.7 fl (9.2-11.8); Monocytes Percent Auto 8.8 % (2.0-11.0); Neutrophils Absolute Auto 4.6 K/mm3 (1.7-7.2); Neutrophils Percent Auto 57.2 % (50.0-70.0); Platelet Count Result 143 K/mm3 (150-420); Red Blood Count 3.69 M/mm3 (4.20-5.40); Red Cell Distribution Width 12.8 % (11.6-14.4)
[2021-07-06 16:10] LABS: Alanine Aminotransferase 19 U/L (14-59); Albumin Level 3.3 g/dL (3.4-5.0); Alkaline Phosphatase 166 U/L (46-116); Anion Gap 12 mmol/L (8-16); Aspartate Amino Transferase 23 U/L (15-37); Bilirubin,Total 0.7 mg/dL (0.00-1.00); Blood Urea Nitrogen 8 mg/dL (7-18); Calcium 9.8 mg/dL (8.5-10.1); Carbon Dioxide 24 mmol/L (21-32); Chloride 101 mmol/L (98-108); Estimated Glomerular Filt Rate > 60; Glucose 103 mg/dL (70-99); Osmolality Calculated 282 mOsm/kg (285-295); Potassium 3.5 mmol/L (3.5-5.1); Sodium 137 mmol/L (136-145); Total Protein 8.5 g/dL (6.4-8.2)
[2021-07-06 16:11] LABS: Thyroid Stimulating Hormone Reflex 3.07 u/IU/mL (0.36-3.74)
== END 2021-07-06 13:18 | disposition home or self-care (01) ==
LOC: CHSLAB 13:24
PROVIDERS: PCP Family Medicine; Visit Provider Internal Medicine Hematology & Oncology
DX: C10.9 Malignant neoplasm of oropharynx, unspecified (principal); Z79.899 Other long term (current) drug therapy; Z13.29 Encounter for screening for other suspected endocrine disorder
CPT/HCPCS: 36415; 80053; 84443; 85025

== ENCOUNTER 2021-07-08 10:01 | Outpatient (CLI) | payer MEDICARE, MEDICAID, SELFPAY | END 2021-07-08 10:02 | disposition home or self-care (01) | PROVIDERS: PCP Family Medicine; Visit Provider Family Medicine | DX: C06.9 Malignant neoplasm of mouth, unspecified (principal) | CPT/HCPCS: 92557; 92567 ==

== ENCOUNTER 2021-07-21 09:43 | Outpatient (CLI) | payer MEDICARE, MEDICAID, SELFPAY ==
[2021-07-21 10:06] LABS: Basophils Absolute Auto 0.03 K/mm3 (0.00-0.10); Basophils Percent Auto 0.4 % (0.0-1.0); Eosinophils Absolute Auto 0.06 K/mm3 (0.02-0.50); Eosinophils Percent Auto 0.9 % (1.0-6.0); Hematocrit 30.2 % (35.0-49.0); Hemoglobin 10.8 g/dL (12.0-15.0); Immature Granulocyte Absolute 0.02 K/mm3 (0.00-0.00); Immature Granulocyte Percent A 0.3 % (0.0-0.0); Lymphocytes Absolute Auto 0.98 K/mm3 (1.10-4.50); Lymphocytes Percent Auto 13.9 % (18.0-42.0); Mean Corpuscular HGB Conc 35.8 g/dL (32.0-36.0); Mean Corpuscular Hemoglobin 33.3 pg (27.0-31.0); Mean Corpuscular Volume 93.2 fL (78.0-102.0); Mean Platelet Volume 9.6 fl (9.2-11.8); Monocytes Absolute Auto 0.74 K/mm3 (0.10-0.90); Monocytes Percent Auto 10.5 % (2.0-11.0); Neutrophils Absolute Auto 5.2 K/mm3 (1.7-7.2); Platelet Count Result 142 K/mm3 (150-420); Red Blood Count 3.24 M/mm3 (4.20-5.40); Red Cell Distribution Width 12.4 % (11.6-14.4); White Blood Count 7.1 K/mm3 (4.8-10.8)
[2021-07-21 10:07] VITALS: BP 113/68; PULSE 100; RESP 16; TEMP 36.8; O2SAT 97; BMI 18.3
[2021-07-21 10:19] LABS: Alanine Aminotransferase 14 U/L (14-59); Albumin Level 2.7 g/dL (3.4-5.0); Alkaline Phosphatase 146 U/L (46-116); Anion Gap 8 mmol/L (8-16); Aspartate Amino Transferase 17 U/L (15-37); Bilirubin,Total 0.8 mg/dL (0.00-1.00); Blood Urea Nitrogen 8 mg/dL (7-18); Carbon Dioxide 28 mmol/L (21-32); Chloride 96 mmol/L (98-108); Estimated CRCL calculation 62 ml/min; Estimated Glomerular Filt Rate > 60; Glucose 113 mg/dL (70-99); Osmolality Calculated 273 mOsm/kg (285-295); Potassium 3.7 mmol/L (3.5-5.1); Sodium 132 mmol/L (136-145); Total Protein 7.6 g/dL (6.4-8.2)
[2021-07-21] MEDS: SODIUM CHLORIDE 0.9% IV 250 ML 10 ML IVPB (10:25)
[2021-07-21] MEDS: FAMOTIDINE 20 MG/2 ML VIAL IV PUSH (11:06)
[2021-07-21] MEDS: DEXAMETHASONE SOD PHOS INJ 4 MG/ML VIAL 12 MG IV PUSH (11:08)
[2021-07-21] MEDS: LORazepam (*CRX) 0.5 MG TABLET PO (11:13)
[2021-07-21] MEDS: FOSAPREPITANT DIMEGLUMINE 150 MG in SODIUM CHLORIDE 0.9% IV 250 ML 750 MG IVPB (12:13)
[2021-07-21] MEDS: MANNITOL 20% IVPB (14:42)
[2021-07-21] MEDS: SODIUM CHLORIDE 0.9% IVPB (14:42)
[2021-07-21 15:31] LABS: Magnesium 1.5 mg/dL (1.8-2.4)
[2021-07-21] MEDS: HEPARIN SODIUM LOCK FLUSH 500 UNITS/5 ML SYRINGE IV PUSH (16:48)
[2021-07-21 16:50] VITALS: BP 100/57; PULSE 88; RESP 14; TEMP 36.4; O2SAT 97
--- NOTE | 2021-07-21 16:52 | PC.NURSE ---
Patient here for Cisplatin IV chemo regimen cycle 1 of 6 q 21 days. Just came from radiation. Education on chemo/side effects etc given. Concerns answered as day went on. Labs drawn and reviewed and ok'd for chemo. Chemo IV Cisplatin regimen administered. Tolerated well. Will return Aug 11, 2021Tuesday. Safe exit of hospital.
== END 2021-07-21 09:44 | disposition home or self-care (01) ==
LOC: CHSLAB 09:47 → CHSTREATRM 09:51
PROVIDERS: PCP Family Medicine; Visit Provider Internal Medicine Hematology & Oncology
DX: Z51.11 Encounter for antineoplastic chemotherapy (principal); C10.3 Malignant neoplasm of posterior wall of oropharynx
CPT/HCPCS: 36415; 80053; 83735; 85025; 96360; 96361; 96366; 96367; 96375; 96413; 96415; A9270; J1453; J3475; J3480; J7040; J7050; J9060

== ENCOUNTER 2021-08-11 11:08 | Outpatient (CLI) | payer MEDICARE, MEDICAID, SELFPAY ==
[2021-08-11 11:32] LABS: Hematocrit 23.6 % (35.0-49.0); Hemoglobin 8.2 g/dL (12.0-15.0); Mean Corpuscular HGB Conc 34.7 g/dL (32.0-36.0); Mean Corpuscular Hemoglobin 32.5 pg (27.0-31.0); Mean Corpuscular Volume 93.7 fL (78.0-102.0); Mean Platelet Volume 9.4 fl (9.2-11.8); Platelet Count Result 195 K/mm3 (150-420); Red Blood Count 2.52 M/mm3 (4.20-5.40); White Blood Count 3.6 K/mm3 (4.8-10.8)
[2021-08-11 11:36] VITALS: BP 109/58; PULSE 86; RESP 14; TEMP 37.1; O2SAT 99
[2021-08-11 11:37] VITALS: BMI 18.2
[2021-08-11 11:45] LABS: Alanine Aminotransferase 19 U/L (14-59); Albumin Level 2.3 g/dL (3.4-5.0); Alkaline Phosphatase 131 U/L (46-116); Anion Gap 8 mmol/L (8-16); Aspartate Amino Transferase 27 U/L (15-37); Bilirubin,Total 0.3 mg/dL (0.00-1.00); Blood Urea Nitrogen 14 mg/dL (7-18); Calcium 8.4 mg/dL (8.5-10.1); Carbon Dioxide 29 mmol/L (21-32); Chloride 98 mmol/L (98-108); Estimated Glomerular Filt Rate > 60; Glucose 92 mg/dL (70-99); Osmolality Calculated 280 mOsm/kg (285-295); Potassium 3.9 mmol/L (3.5-5.1); Sodium 135 mmol/L (136-145); Total Protein 6.5 g/dL (6.4-8.2)
[2021-08-11] MEDS: SODIUM CHLORIDE 0.9% IV 250 ML 10 ML IVPB (11:50)
[2021-08-11] MEDS: FAMOTIDINE 20 MG/2 ML VIAL IV PUSH (11:50)
[2021-08-11 11:56] LABS: Band Neutrophils Percent 1 % (0-6); Basophils Percent Manual 0 % (0-1); Eosinophils Percent Manual 3 % (1-6); Lymphocytes Percent Manual 28 % (18-44); Magnesium 1.9 mg/dL (1.8-2.4); Monocytes Absolute Manual 0.68 K/mm3 (0.1-0.90); Monocytes Percent Manual 19 % (3-9); Neutrophils Percent Manual 49 % (46-73); Total Cells Counted 100
[2021-08-11 11:57] LABS: Platelet Estimate Adequate (Adequate)
[2021-08-11] MEDS: DEXAMETHASONE SOD PHOS INJ 4 MG/ML VIAL 12 MG IV PUSH (12:09)
[2021-08-11] MEDS: PALONOSETRON HCL 0.25 MG/5 ML VIAL IV PUSH (12:56)
[2021-08-11] MEDS: FOSAPREPITANT DIMEGLUMINE 150 MG in SODIUM CHLORIDE 0.9% IV 250 ML 750 MG IVPB (12:57)
[2021-08-11 17:43] VITALS: BP 111/60; PULSE 88; RESP 16; TEMP 37.2; O2SAT 98
--- NOTE | 2021-08-11 17:44 | PC.NURSE ---
Patient here for Cycle 2 of Cisplatin chemo regime. Labs drawn and reviewed and ok'd. Chemo regime reviewed with patient. All concerns answered. Cisplatin chemo regime administered SEE MAR. Tolerated well. Will return 09/01/21 for cycle 3. Safe exit of hospital.
[2021-08-11] MEDS: HEPARIN SODIUM LOCK FLUSH 500 UNITS/5 ML SYRINGE IV PUSH (17:52)
== END 2021-08-11 11:09 | disposition home or self-care (01) ==
LOC: CHSTREATRM 11:11
PROVIDERS: PCP Family Medicine; Visit Provider Internal Medicine Hematology & Oncology
DX: Z51.11 Encounter for antineoplastic chemotherapy (principal); C10.3 Malignant neoplasm of posterior wall of oropharynx
CPT/HCPCS: 36415; 80053; 83735; 85025; 96360; 96361; 96366; 96367; 96375; 96413; 96415; A9270; J1100; J1453; J2469; J3475; J3480; J7030; J7040; J7050; J9060

== ENCOUNTER 2021-08-30 15:52 | Emergency (ER) | payer MEDICARE, MEDICAID, SELFPAY ==
--- NOTE | ~2021-08-30 | XR_ITS ---
EXAMINATION: XR chest 1V portable INDICATION: Cough TECHNIQUE: Portable AP chest at 1619 hours COMPARISON: 05/27/2021 FINDINGS: The lungs are hyperinflated but free of acute opacities. There is no pleural effusion or pn eumothorax. Healed left-sided rib fractures are noted. The cardiomediastinal silhouette is normal. A right internal jugular Port-A-Cath ends with its tip in the distal superior vena cava. IMPRESSION: 1. No acute cardiopulmonary abnormality. Reviewed, dictated and finalized at location A.
[2021-08-30 15:52] VITALS: BP 117/68; PULSE 102; RESP 20; TEMP 36.4; O2SAT 100
--- NOTE | 2021-08-30 16:11 | ED.GENADULT ---
HPI - General Adult General Chief complaint: Unspecified Stated complaint: unknown Source: patient Mode of arrival: EMS Limitations: no limitations History of Present Illness HPI narrative: Pt presents after choking on sputum. She has esophageal Cancer, and is NPO. She is not able to swallow her mucus (but that is not new) SHe is getting radiation and chemo. Relieving factors: none Exacerbating factors: none Associated symptoms: denies other symptoms Related Data Home Medications Medication Instructions Recorded Confirmed thiamine HCl (vitamin B1) 100 mg DAILY 05/20/21 08/30/21 fentanyl 1 patch TRANSDERMAL Q72H 07/21/21 08/30/21 hydrocodone-acetaminophen 15 ml FEEDING TUBE PRN 08/30/21 08/30/21 morphine 15 mg PO BID 08/30/21 08/30/21 nystatin 3 ml PO TID 08/30/21 08/30/21 Allergies Allergy/AdvReac Type Severity Reaction Status Date / Time codeine Allergy Mild Itching, Verified 05/27/21 08:30 N/V Penicillins Allergy Mild Hives Verified 05/27/21 08:30 Review of Systems Review of Systems: All systems reviewed & are unremarkable except as noted in HPI and below PMFSH Past Medical History Medical History (Updated 08/30/21 @ 17:15 by India Pryor MD) Alcohol abuse HTN (hypertension) Marijuana abuse Oral cancer Surgical History Surgical History History of ankle surgery Social History Social History Smoking status: Former smoker Tobacco type: cigarettes Additional smoking assessment comments: STATES WAS SMOKING 1 1/2PK/DAY-NOW DOWN TO 4 CIGS/DAY - 25YRS Alcohol intake: former Alcohol use details: STATES WAS DRINKING 2- 20 OZ CANS NIGHTLY, QUIT FEBRUARY 2021 Substance use: current Substance use type: marijuana Last use: APRIL 2021 Spiritual care concerns: No Exam Const: General: cooperative and ill appearing Nutritional Appearance: cachectic Orientation/consciousness: patient oriented x3 HENMT: Head: normal to inspection Eyes: General: appearance normal, both eyes and all related structures Neck: Neck: normal visual inspection Chest: Chest palpation & inspection: normal inspection of the chest Resp: Effort & Inspection: normal respiratory effort Auscultation: clear to auscultation bilaterally Cardio: Rate: regular rate Rhythm: regular rhythm GI: Inspection: normal to inspection (gtube in place, no infection) GI Palp: No abdominal tenderness Percussion: Yes normal to percussion Back/Spine/Pelvis: Back: no CVA tenderness Skin: General skin exam: normal color and no rashes or lesions noted Neuro: General: oriented to person, oriented to place, oriented to time and patient oriented x3 Psych: Appearance: grossly normal Affect: normal affect Attitude: cooperative Thought process: Normal thought process present Discharge Plan Discharge Clinical Impression: Cough productive of clear sputum Choking due to phlegm in larynx Qualifiers: Encounter type: initial encounter Qualified Code(s): T17.310A - Gastric contents in larynx causing asphyxiation, initial encounter Patient Disposition: Home, Self-Care Condition: Stable Instructions: Antibiotic Form Prescriptions: No Action nystatin 100,000 unit/mL suspension 3 ml PO TID RF: 0 morphine 15 mg tablet extended release 15 mg PO BID RF: 0 hydrocodone-acetaminophen 7.5-325 mg/15 mL solution 15 ml feeding tube PRN RF: 0 fentanyl 25 mcg/hr Patch 72 Hour 1 patch TRANSDERMAL Q72H RF: 0 thiamine HCl (vitamin B1) 100 mg/mL Syringe 100 mg DAILY RF: 0 Follow-up/Referrals: UNKNOWN,DOCTOR [Primary Care Provider] - Time of Disposition: 17:15
[2021-08-30] MEDS: SCOPOLAMINE 1.5 MG PATCH TRANSDERM (16:28)
[2021-08-30 17:17] VITALS: BP 117/68; PULSE 99; RESP 14; TEMP 36.6; O2SAT 100
== END 2021-08-30 17:20 | disposition home or self-care (01) ==
PROVIDERS: Emergency Provider Emergency Medicine
DX: T17.398A Other foreign object in larynx causing other injury, initial encounter (principal); R05.9 Cough, unspecified; C15.9 Malignant neoplasm of esophagus, unspecified; I10 Essential (primary) hypertension; F10.10 Alcohol abuse, uncomplicated; F12.10 Cannabis abuse, uncomplicated; Z87.891 Personal history of nicotine dependence; Z79.899 Other long term (current) drug therapy
CPT/HCPCS: 71045; 96372; 99283; A9270; J1100

== ENCOUNTER 2021-09-08 09:54 | Outpatient (CLI) | payer MEDICARE, MEDICAID, SELFPAY ==
[2021-09-08 10:19] VITALS: BP 111/63; PULSE 80; RESP 14; TEMP 35.9; O2SAT 100
[2021-09-08 10:20] VITALS: BMI 17.4
[2021-09-08 10:21] LABS: Hematocrit 23.5 % (35.0-49.0); Hemoglobin 8.5 g/dL (12.0-15.0); Mean Corpuscular HGB Conc 36.2 g/dL (32.0-36.0); Mean Platelet Volume 9.3 fl (9.2-11.8); Platelet Count Result 155 K/mm3 (150-420); White Blood Count 3.8 K/mm3 (4.8-10.8)
[2021-09-08 10:37] LABS: Alanine Aminotransferase 22 U/L (14-59); Alkaline Phosphatase 166 U/L (46-116); Anion Gap 8 mmol/L (8-16); Aspartate Amino Transferase 20 U/L (15-37); Bilirubin,Total 0.4 mg/dL (0.00-1.00); Blood Urea Nitrogen 23 mg/dL (7-18); Calcium 8.8 mg/dL (8.5-10.1); Carbon Dioxide 31 mmol/L (21-32); Chloride 101 mmol/L (98-108); Estimated Glomerular Filt Rate > 60; Glucose 98 mg/dL (70-99); Magnesium 2.1 mg/dL (1.8-2.4); Osmolality Calculated 293 mOsm/kg (285-295); Potassium 3.7 mmol/L (3.5-5.1); Sodium 140 mmol/L (136-145); Total Protein 7.3 g/dL (6.4-8.2)
[2021-09-08 11:13] LABS: Band Neutrophils Percent 0 % (0-6); Eosinophils Absolute Manual 0.26 K/mm3 (0.02-0.5); Eosinophils Percent Manual 7 % (1-6); Lymphocytes Absolute Manual 0.79 K/mm3 (1.1-4.5); Lymphocytes Percent Manual 21 % (18-44); Monocytes Absolute Manual 0.53 K/mm3 (0.1-0.90); Monocytes Percent Manual 14 % (3-9); Neutrophils Percent Manual 58 % (46-73); Platelet Estimate Adequate (Adequate); Total Cells Counted 100
[2021-09-08] MEDS: SODIUM CHLORIDE 0.9% IV 250 ML 10 ML IVPB (11:15)
[2021-09-08] MEDS: PALONOSETRON HCL 0.25 MG/5 ML VIAL IV PUSH (11:19)
[2021-09-08] MEDS: DEXAMETHASONE SOD PHOS INJ 4 MG/ML VIAL 12 MG IV PUSH (11:22)
[2021-09-08] MEDS: FOSAPREPITANT DIMEGLUMINE 150 MG in SODIUM CHLORIDE 0.9% IV 250 ML 750 MG IVPB (11:23)
[2021-09-08] MEDS: MANNITOL 20% 62.5 ML, SODIUM CHLORIDE 0.9% IV 100 ML 300 ML IVPB (14:40)
--- NOTE | 2021-09-08 16:30 | PC.NURSE ---
Patient here for last Cisplatin chemo regimen. Medication education given. No concerns. Chemo regimen administered via patent port after labs drawn and ok'd. SEE MAR. Tolerated well. Safe exit of hospital!!!
[2021-09-08 16:33] VITALS: BP 121/67; PULSE 80; RESP 16; TEMP 36.8; O2SAT 99
[2021-09-08] MEDS: HEPARIN SODIUM LOCK FLUSH 500 UNITS/5 ML SYRINGE IV PUSH (16:54)
== END 2021-09-08 09:55 | disposition home or self-care (01) ==
LOC: CHSTREATRM 09:57
PROVIDERS: PCP Family Medicine; Visit Provider Internal Medicine Hematology & Oncology
DX: Z51.11 Encounter for antineoplastic chemotherapy (principal); C10.3 Malignant neoplasm of posterior wall of oropharynx
CPT/HCPCS: 36415; 80053; 83735; 85025; 96360; 96361; 96366; 96367; 96375; 96413; 96415; J1100; J1453; J2469; J3475; J3480; J7030; J7040; J7050; J9060

== ENCOUNTER 2022-05-04 23:24 | Emergency (ER) | payer OTHER, SELFPAY ==
--- NOTE | ~2022-05-04 | CT_ITS ---
EXAMINATION:CT diagnostic chest wo con DATE: 05/05/2022 02:48 INDICATION: Bronchial occlusion. TECHNIQUE: Computed tomography (CT) of the chest was performed without intravenous contrast. Automate d exposure control and iterative reconstruction technique were employed. The dose-length product (DLP ) was 119.33 mGy-cm. COMPARISON: Chest single view 08/30/2021, PET CT 06/09/2021 FINDINGS: The lungs demonstrate diffuse septal thickening. There is a perihilar mass involving right middle lobe and right upper lobe measuring approximately 6.9 x 5.9 cm. There is occlusion of the bron chi in the basilar segments of right lower lobe. There are airspace opacities with cavitation in the upper lobes. There are cavitary nodules in the right lower lobe. There is an 11 mm nodule in lingula. There are tree-in-bud opacities in the lower lobes. There is a small right pleural effusion. There i s a right internal jugular port with tip in right atrium. The heart size is normal. There are coronar y artery calcifications. There is a small pericardial effusion. The blood pool is hypodense, consiste nt with anemia. There is mild mediastinal lymphadenopathy. There is mild thoracic spondylosis. IMPRESSION: 1. Perihilar mass in right lung, consistent with malignancy. 2. Diffuse lung disease, likely a combination of pneumonia and mild pulmonary edema. Some nodules may be either infection or metastatic disease. 3. Small right pleural effusion. Reviewed, dictated and finalized at location A. IMPRESSION: 1. Perihilar mass in right lung, consistent with malignancy. 2. Diffuse lung disease, likely a combination of pneumonia and mild pulmonary e evita. Some nodules may be either infection or metastatic disease. 3. Small right pleural effusion.
--- NOTE | ~2022-05-04 | CT_ITS ---
EXAMINATION: CT abdomen pelvis wo con DATE: 05/05/2022 00:21 INDICATION: Diffuse abdominal pain TECHNIQUE: Computed tomography (CT) of the abdomen and pelvis was performed without intravenous contr ast. The dose-length product was 164.56 mGy-cm. Automated exposure control and iterative reconstructi on technique were employed. COMPARISON: CT dated 09/11/2019. FINDINGS: There are multiple small nodules peripherally in the lower lungs measuring 3 mm or less. Th ere are occluded bronchi in the right lower and middle lobe with subsegmental atelectasis. There is p eribronchial thickening in the right middle lobe. There is a pericardial effusion. No significant ple ural effusion. The liver, spleen, pancreas, adrenal glands and kidneys are unremarkable. There is probable retroperi toneal lymphadenopathy, although evaluation is limited without contrast. Nonobstructive bowel gas pat tern. Moderate colonic fecal loading. Mild diffuse subcutaneous edema. No free air. Small amount of f ree fluid in the pelvis. There is diffuse atherosclerosis. IMPRESSION: 1. Right middle lobe consolidation, scattered small pulmonary nodules measuring 3 mm or less, multipl e occluded bronchi in the right lower and middle lobe with peribronchial thickening. This constellati on of findings is suspicious for bronchiolitis/bronchitis. 2: Probable retroperitoneal lymphadenopathy, most likely reactive. 3: Pericardial effusion. 4: Mild diffuse subcutaneous edema with trace free fluid in the pelvis. Reviewed, dictated and finalized at location B. IMPRESSION: 1. Right middle lobe consolidation, scattered small pulmonary nodules measuring 3 mm or less, multiple occluded bronchi in the right lower and middle lobe wit h peribronchial thickening. This constellation of findings is suspicious for br onchiolitis/bronchitis. 2: Probable retroperitoneal lymphadenopathy, most likely reactive. 3: Pericardial effusion. 4: Mild diffuse subcutaneous edema with trace free fluid in the pelvis.
[2022-05-04 23:24] VITALS: BP 94/61; PULSE 117; RESP 20; TEMP 36.9; O2SAT 97
[2022-05-04 23:40] VITALS: PULSE 112
[2022-05-05] VITALS (23 sets, daily range): BP systolic 85–121; BP diastolic 52–87; PULSE 75–108; RESP 16–22; TEMP 36.1–36.8; O2SAT 99–100
[2022-05-05] MEDS: PANTOPRAZOLE SODIUM IV 40 MG VIAL IV PUSH (00:02)
[2022-05-05] MEDS: ONDANSETRON INJ 4 MG/2 ML VIAL IV PUSH (00:04)
[2022-05-05 00:10] LABS: Basophils Absolute Auto 0.03 K/mm3 (0.00-0.10); Basophils Percent Auto 0.4 % (0.0-1.0); Eosinophils Absolute Auto 0.07 K/mm3 (0.02-0.50); Eosinophils Percent Auto 0.8 % (1.0-6.0); Hematocrit 21.6 % (35.0-49.0); Immature Granulocyte Absolute 0.03 K/mm3 (0.00-0.00); Immature Granulocyte Percent A 0.4 % (0.0-0.0); Lymphocytes Absolute Auto 0.82 K/mm3 (1.10-4.50); Lymphocytes Percent Auto 9.7 % (18.0-42.0); Mean Corpuscular HGB Conc 32.4 g/dL (32.0-36.0); Mean Corpuscular Hemoglobin 28.6 pg (27.0-31.0); Mean Corpuscular Volume 88.2 fL (78.0-102.0); Mean Platelet Volume 8.6 fl (9.2-11.8); Monocytes Absolute Auto 0.62 K/mm3 (0.10-0.90); Monocytes Percent Auto 7.4 % (2.0-11.0); Neutrophils Absolute Auto 6.9 K/mm3 (1.7-7.2); Neutrophils Percent Auto 81.3 % (50.0-70.0); Platelet Count Result 159 K/mm3 (150-420); Red Blood Count 2.45 M/mm3 (4.20-5.40); Red Cell Distribution Width 15.6 % (11.6-14.4); White Blood Count 8.4 K/mm3 (4.8-10.8)
[2022-05-05 00:19] LABS: Alanine Aminotransferase 10 U/L (14-59); Alkaline Phosphatase 117 U/L (46-116); Anion Gap 4 mmol/L (8-16); Aspartate Amino Transferase 19 U/L (15-37); Bilirubin,Total 0.3 mg/dL (0.00-1.00); Blood Urea Nitrogen 18 mg/dL (7-18); Calcium 11.3 mg/dL (8.5-10.1); Carbon Dioxide 29 mmol/L (21-32); Chloride 99 mmol/L (98-108); Estimated Glomerular Filt Rate 57; Glucose 112 mg/dL (70-99); Lipase 44 U/L (73-393); Osmolality Calculated 276 mOsm/kg (285-295); Potassium 2.9 mmol/L (3.5-5.1); Sodium 132 mmol/L (136-145); Total Protein 7.1 g/dL (6.4-8.2)
[2022-05-05 00:24] LABS: Lactic Acid Reflex 0.8 mmol/L (0.4-2.0)
--- NOTE | 2022-05-05 01:02 | PC.NURSE ---
Pt's reports were all finished except for UA due to pt not having to urinate, and pt's NSS was also finished. ERP notified and updated on low potassium and pt's most recent blood pressure. ERP ordered for another 1000mls of 0.9% NSS bolus. RN confirmed and read back the order.
[2022-05-05] MEDS: SODIUM CHLORIDE 0.9% IV 1,000 ML 999 ML IV CONT ×2 (01:10)
--- NOTE | 2022-05-05 02:02 | PC.NURSE ---
RN phoned ERP to inform the second bolus has 100mls left in the bolus and pt's blood pressure is 95/65. ERP asked for another 1000mls 0.9% NSS at 150mls/hr IV. RN read back order and ERP confirmed.
[2022-05-05] MEDS: SODIUM CHLORIDE 0.9% IV 1,000 ML 150 ML IV CONT (02:16)
--- NOTE | 2022-05-05 02:18 | ECG_ITS ---
Measurements Intervals [place] Rate: 96 P: 69 AK: 150 QRS: 82 QRSD: 85 T: 61 QT: 355 QTc: 451 Interpretive Statements SINUS RHYTHM LOW QRS VOLTAGE IN PRECORDIAL LEADS [QRS DEFLECTION < 1.0 mV IN CHEST LEADS] BORDERLINE ECG NO PREVIOUS ECG AVAILABLE FOR COMPARISON Electronically Signed On 05-05-2022 7:28:55 CDT by Yaw Lagos M.D.
--- NOTE | 2022-05-05 02:27 | ED.ABDPAIN ---
HPI - Abdominal Pain General Chief Complaint: Abdominal Pain Stated Complaint: sob Time Seen by Provider: 05/04/22 23:26 Source: patient, EMS and RN notes reviewed Mode of arrival: EMS Limitations: no limitations History of Present Illness MD elicited complaint: abdominal pain Pertinent past history: constipation Onset (ago): day(s) (1) Pain Consistency: constant and colicky Location: periumbilical Severity: mild Pain scale (0-10): 3 Quality: cramping and dull Radiation: none Migration to: no migration Exacerbating factors: nothing Relieving factors: nothing Associated symptoms: nausea Related Data Home Medications Medication Instructions Recorded Confirmed No Home Medications 05/05/22 05/05/22 Allergies Allergy/AdvReac Type Severity Reaction Status Date / Time codeine Allergy Mild Itching, Verified 05/04/22 23:58 N/V Penicillins Allergy Mild Hives Verified 05/04/22 23:58 Review of Systems Review of Systems: All systems reviewed & are unremarkable except as noted in HPI and below Constitutional: Constitutional: Reports no additional constitutional complaints Eyes: Eyes: Reports no additional eye complaints ENT: Reports system reviewed and no additional complaints, except as documented Cardiovascular: Cardiovascular: Reports no additional cardiovascular complaints Respiratory: Respiratory: Reports no additional respiratory complaints Gastrointestinal: Gastrointestinal: Reports no additional gastrointestinal complaints Genitourinary: Genitourinary: Reports no additional female genitourinary complaints Musculoskeletal: Musculoskeletal: Reports no additional musculoskeletal complaints Integumentary/Breasts: Skin/Breast: Reports system reviewed and no additional complaints, except as docu Neurologic: Reports system reviewed and no additional complaints, except as documented Psychiatric: Psychiatric: Reports no additional psychiatric complaints Endocrine: Endocrine: Reports no additional endocrine complaints Hematologic/Lymphatic: Hematologic/Lymphatic: Reports no additional hematologic/lymphatic complaints Allergic/Immunologic: Allergic/Immunologic: Reports no additional allergic/immunologic complaints [facility] Past Medical History Medical History (Updated 05/05/22 @ 07:45 by Timothy Elias MD) Abdominal pain Alcohol abuse HTN (hypertension) Marijuana abuse Oral cancer Surgical History Surgical History History of ankle surgery Social History Social History Smoking status: Former smoker Tobacco type: cigarettes Additional smoking assessment comments: STATES WAS SMOKING 1 1/2PK/DAY-NOW DOWN TO 4 CIGS/DAY - 25YRS Alcohol intake: former Alcohol use details: STATES WAS DRINKING 2- 20 OZ CANS NIGHTLY, QUIT FEBRUARY 2021 Substance use: current Substance use type: marijuana Last use: APRIL 2021 Spiritual care concerns: No Exam Const: General: no acute distress and ill appearing Nutritional Appearance: well nourished and thin Orientation/consciousness: patient oriented x3 Limitations: no limitations HENMT: Head: normal to inspection Ears: external ears normal, TM's normal bilaterally and EAC's normal General nose exam: Normal external nose present and Normal nares present Face and sinus: normal facial exam and sinuses nontender Mouth: Yes Normal oral and palatal mucosa present and Yes moist mucous membranes Teeth and gingiva: dentition normal Throat: posterior oropharynx normal Eyes: Conjunctivae: conjunctivae normal Pupils: Equal, round and reactive pupils present EOM: EOMs intact bilaterally Neck: Neck: normal visual inspection, no lymphadenopathy and no meningeal signs Chest: Chest palpation & inspection: normal inspection of the chest Resp: Effort & Inspection: normal respiratory effort Auscultation: rhonchi Cardio: Rate: tachycardic Rhyth
--- NOTE | 2022-05-05 03:06 | PC.NURSE ---
Pt offered Potassium 20meq ER tablets, but pt is unable to swallow. RN called [facility] for further instructions. [facility] Pharmacist advised that ER pills cannot be crushed and advised care team to use Potassium Chloride dissolvable powder. ERP updated.
[2022-05-05 03:18] LABS: Basophils Absolute Auto 0.02 K/mm3 (0.00-0.10); Basophils Percent Auto 0.3 % (0.0-1.0); Eosinophils Absolute Auto 0.08 K/mm3 (0.02-0.50); Eosinophils Percent Auto 1.2 % (1.0-6.0); Immature Granulocyte Absolute 0.03 K/mm3 (0.00-0.00); Immature Granulocyte Percent A 0.4 % (0.0-0.0); Lymphocytes Absolute Auto 0.84 K/mm3 (1.10-4.50); Lymphocytes Percent Auto 12.5 % (18.0-42.0); Mean Corpuscular HGB Conc 31.6 g/dL (32.0-36.0); Mean Corpuscular Hemoglobin 28.8 pg (27.0-31.0); Monocytes Absolute Auto 0.37 K/mm3 (0.10-0.90); Monocytes Percent Auto 5.5 % (2.0-11.0); Neutrophils Absolute Auto 5.4 K/mm3 (1.7-7.2); Neutrophils Percent Auto 80.1 % (50.0-70.0); Platelet Count Result 150 K/mm3 (150-420); Red Blood Count 2.12 M/mm3 (4.20-5.40); Red Cell Distribution Width 15.7 % (11.6-14.4); White Blood Count 6.7 K/mm3 (4.8-10.8)
[2022-05-05] MEDS: KCL 20 MEQ/SW 100 ML 100 ML 50 MEQ IVPB (03:18)
[2022-05-05 03:19] LABS: Hemoglobin 6.1 g/dL (12.0-15.0)
[2022-05-05 03:20] LABS: Hematocrit 19.3 % (35.0-49.0)
[2022-05-05 03:36] LABS: Troponin I 28.8 ng/L (0.00-60.4)
[2022-05-05 03:37] LABS: Lactic Acid Reflex 1.1 mmol/L (0.4-2.0)
[2022-05-05] MEDS: POTASSIUM CHLORIDE 20 MEQ PACKET (FOR LIQUID) 60 MEQ PO (04:01)
--- NOTE | 2022-05-05 06:45 | PC.NURSE ---
ERP asked RN to contact [facility] to attempt a transfer. EPR asked to speak to the hospitalist and a pulmonary consult. RN called supervisor [facility]. [employer] finishing supervisor states she will start the process and will have hospitalist return a call as soon as possible.
--- NOTE | 2022-05-05 10:23 | PC.NURSE ---
[facility] called for report. bed assigned. report given. ems dispatched. iv infusing well. pt denies pain at this time. resp even and non-labored.
== END 2022-05-05 11:00 | disposition short-term general hospital (02) ==
PROVIDERS: Emergency Provider Emergency Medicine; PCP Family Medicine
DX: J18.9 Pneumonia, unspecified organism (principal); C34.90 Malignant neoplasm of unspecified part of unspecified bronchus or lung; E86.0 Dehydration; F17.200 Nicotine dependence, unspecified, uncomplicated; I10 Essential (primary) hypertension; Z85.819 Personal history of malignant neoplasm of unspecified site of lip, oral cavity, and pharynx
CPT/HCPCS: 36415; 36430; 36600; 71250; 74176; 80053; 81003; 82805; 83605; 83690; 84484; 85025; 86850; 86900; 86901; 86920; 87040; 93005; 96361; 96365; 96366; 96367; 96375; 99285; A9270; C9113; J0696; J2405; J3480; J7030; P9016